=== PATIENT | male | born 1965 | race Caucasian/White ===

== ENCOUNTER 2021-02-11 03:35 | Emergency (ER) | payer BC, SELFPAY ==
--- NOTE | ~2021-02-11 | XR_ITS ---
XR chest 2V DATE: 02/11/2021 04:05 INDICATION: Left-sided chest pain and shortness of breath for one day TECHNIQUE: PA and lateral views COMPARISON: None FINDINGS: Normal heart size. No hilar or mediastinal enlargement. No pulmonary infiltrate or consolid ation, pleural effusion or pulmonary vascular congestion or pneumothorax. IMPRESSION: Negative Reviewed, dictated and finalized at location A. IMPRESSION: Negative
--- NOTE | 2021-02-11 03:37 | ECG_ITS ---
Measurements Intervals [place] Rate: 65 P: 56 UT: 190 QRS: 17 QRSD: 88 T: 51 QT: 396 QTc: 414 Interpretive Statements SINUS RHYTHM NORMAL ECG Electronically Signed On 02-11-2021 11:43:51 CDT by Michael Viera D.O.
[2021-02-11 03:41] VITALS: BP 158/94; PULSE 86; RESP 18; TEMP 36.7; O2SAT 100
[2021-02-11 03:48] VITALS: PULSE 66
[2021-02-11 04:21] LABS: Prothrombin Time 13.7 Seconds (11.1-14.7)
[2021-02-11 04:22] LABS: Anion Gap 10 mmol/L (8-16); Blood Urea Nitrogen 13 mg/dL (9-20); Calcium 9.2 mg/dL (8.4-10.2); Carbon Dioxide 29 mmol/L (22-30); Chloride 103 mmol/L (98-107); Estimated CRCL calculation 92 ml/min; Estimated Glomerular Filt Rate > 60; Glucose 90 mg/dL (75-110); Partial Thromboplastin Time 30.3 SECONDS (22.3-36.8); Potassium 4.2 mmol/L (3.4-5.0); Sodium 142 mmol/L (137-145)
[2021-02-11] MEDS: ASPIRIN 81 MG CHEWABLE TABLET 324 MG PO (04:31)
[2021-02-11 04:34] LABS: Troponin I < 0.012 ng/mL (0.000-0.034)
--- NOTE | 2021-02-11 05:02 | ED.CHESTPAIN ---
HPI - Chest Pain General Chief Complaint: Chest Pain <Ros Larry MD - Last Filed: 02/12/21 06:03> Stated Complaint: Chest pain <Ros Larry MD - Last Filed: 02/12/21 06:03> Time Seen by Provider: 02/11/21 04:00 <Ros Larry MD - Last Filed: 02/12/21 06:03> Source: patient <Ros Larry MD - Last Filed: 02/12/21 06:03> Mode of arrival: ambulatory <Ros Larry MD - Last Filed: 02/12/21 06:03> Limitations: no limitations <Ros Larry MD - Last Filed: 02/12/21 06:03> History of Present Illness HPI narrative: This is a 55 year old male who presents for evaluation of left chest pain. He states he first developed left chest pain last night. He described this pain has left chest tightness with left arm tightness. His pain only lasted minutes so he did not think much of his pain. He woke up at 3 am this morning with left chest pain that he describes as sharp left chest pain. He reports his pain has subsided and he only feels much sharp pain. He denies pain radiating to his back but he reports sharp left arm pain. He denies diaphoresis, nausea, vomiting or dizziness. HE does reports mild sob. He denies previous heart disease but reports his father of heart disease at the age of 70. <Ros Larry MD - Last Filed: 02/12/21 06:03> Related Data Home Medications: Home Medications Medication Instructions Recorded Confirmed timolol maleate drp 02/11/21 02/19/21 melatonin 10 mg tablet 10 mg PO QHS 02/19/21 02/19/21 <Ros Larry MD - Last Filed: 02/12/21 06:03> Allergies/Adverse Reactions: Allergies Allergy/AdvReac Type Severity Reaction Status Date / Time Penicillins Allergy Unknown Verified 02/11/21 03:36 <Ros Larry MD - Last Filed: 02/12/21 06:03> Review of Systems Review of Systems: All systems reviewed & are unremarkable except as noted in HPI and below <Ros Larry MD - Last Filed: 02/12/21 06:03> Constitutional: Constitutional: Denies chills and Denies fever(s) <Ros Larry MD - Last Filed: 02/12/21 06:03> Cardiovascular: Cardiovascular: Reports chest pain and Reports radiating jaw, neck or arm pain <Ros Larry MD - Last Filed: 02/12/21 06:03> Respiratory: Respiratory: Denies cough and Reports dyspnea <Ros Larry MD - Last Filed: 02/12/21 06:03> Gastrointestinal: Gastrointestinal: Denies abdominal pain, Denies nausea and Denies vomiting <Ros Larry MD - Last Filed: 02/12/21 06:03> Musculoskeletal: Musculoskeletal: Denies back pain <Ros Larry MD - Last Filed: 02/12/21 06:03> Neurologic: Denies focal weakness <Ros Larry MD - Last Filed: 02/12/21 06:03> [facility] Past Medical History Medical History: Medical History (Updated 02/19/21 @ 16:08 by Peter Granado MD) BMI 28.0-28.9,adult Cataract Chest pain Colon cancer screening Encounter for prostate cancer screening Encounter for wellness examination in adult Gastro-esophageal reflux disease without esophagitis Retinal detachment Rupture Achilles tendon Seasonal allergic rhinitis <Ros Larry MD - Last Filed: 02/12/21 06:03> Surgical History Surgical History: Surgical History (Updated 02/19/21 @ 14:50 by Deisy Willis MA) History of tonsillectomy and adenoidectomy (~1973) <Ros Larry MD - Last Filed: 02/12/21 06:03> Family History Family History: Family History (Updated 02/19/21 @ 14:51 by Deisy Willis MA) Father Heart disease Mother Breast cancer Sibling Hypertension Grandparent Heart disease <Ros Larry MD - Last Filed: 02/12/21 06:03> Social History Social History: Social History (Updated 02/19/21 @ 15:01 by Deisy Willis MA) Smoking status: Never smoker Alcohol intake: former Substance use: never Substance use type: does not use <Ros Larry MD - Last Filed: 02/12/21 06:03> Exam
[2021-02-11 06:57] VITALS: BP 131/90; PULSE 67; RESP 20; O2SAT 100
[2021-02-11 06:59] LABS: Basophils Absolute Auto 0.1 K/mm3 (0.0-0.1); Basophils Percent Auto 1.2 % (0.2-1.2); Eosinophils Absolute Auto 0.3 K/mm3 (0-0.3); Eosinophils Percent Auto 4.4 % (0-4.4); Hemoglobin 14.6 g/dL (14.0-18.0); Immature Granulocyte Absolute 0.02 K/mm3 (0.00-0.031); Immature Granulocyte Percent A 0.3 % (0-0.5); Lymphocytes Percent Auto 23.4 % (18.3-44.2); Mean Corpuscular HGB Conc 33.2 g/dl (32-36); Mean Corpuscular Hemoglobin 30.8 pg (26-34); Mean Corpuscular Volume 92.8 fl (80-100); Mean Platelet Volume 9.7 fl (7.4-10.4); Monocytes Absolute Auto 0.6 K/mm3 (0.1-0.6); Monocytes Percent Auto 9.5 % (2.6-8.5); Neutrophils Absolute Auto 3.9 K/mm3 (1.3-6.7); Neutrophils Percent Auto 61.2 % (45.5-73.1); Platelet Count Result 187 k/mm3 (150-375); Red Blood Count 4.74 M/mm3 (4.6-6.20); Red Cell Distribution Width 12.8 % (11.5-14.5); White Blood Count 6.4 K/mm3 (4.5-10.0)
[2021-02-11 07:12] LABS: D Dimer 0.27 ug/mL (<0.48)
[2021-02-11 07:59] LABS: Troponin I < 0.012 ng/mL (0.000-0.034)
[2021-02-11 08:36] VITALS: BP 126/84; PULSE 63; RESP 17; O2SAT 100
== END 2021-02-11 08:42 | disposition home or self-care (01) ==
PROVIDERS: Emergency Provider General Practice; PCP Family Medicine
DX: R07.9 Chest pain, unspecified (principal); H26.9 Unspecified cataract
CPT/HCPCS: 36415; 71046; 80048; 84484; 85025; 85380; 85610; 85730; 93005; 99284; A9270

== ENCOUNTER 2021-03-05 10:06 | Outpatient (CLI) | payer BC, SELFPAY ==
--- NOTE | 2021-03-05 10:12 | EST_ITS ---
Patient Info Name: Andrea Farley Age: 55 years : 1965 Gender: Male Ht: 77 in Wt: 235 lbs BSA: 2.42 m2 Exam Date: 03/05/2021 10:40 AM Exam Location: [facility] Stress Patient Status: Outpatient Admit Date: 03/05/2021 Staff Ordering Physician: Peter Granado MD Attending Provider: Peter Granado MD Exercise Technologist: Refugio Oliver RDCS, RT Exercise Physician: Michael Viera DO Exam Type: CA stress test treadmill Study Info A treadmill exercise stress test was performed. Summary 1. 1. Negative Joey exercise stress test for ischemic ST changes by ECG criteria. 2. 2. Good functional capacity, achieving 10 METs of workload. 3. 3. Appropriate HR response to exercise. 4. 4. Appropriate HR recovery at 1 minute post exercise. 5. 5. No imaging with stress testing. 6. 6. Patient informed of the above results. Protocol: Joey Stress ECG Details Stage: REST Duration (min): 1 min : 10 sec Speed (mph): 0.0 Grade (%): 0 HR (bpm): 61 SBP (mmHg): 121 DBP (mmHg): 80 METS: --- Stage: REST Duration (min): 4 min : 36 sec Speed (mph): 0.0 Grade (%): 0 HR (bpm): 75 SBP (mmHg): 121 DBP (mmHg): 80 METS: --- Stage: STAGE 1 Duration (min): 1 min : 0 sec Speed (mph): 1.7 Grade (%): 10 HR (bpm): 97 SBP (mmHg): 121 DBP (mmHg): 80 METS: --- Stage: STAGE 1 Duration (min): 2 min : 0 sec Speed (mph): 1.7 Grade (%): 10 HR (bpm): 103 SBP (mmHg): 121 DBP (mmHg): 80 METS: --- Stage: STAGE 1 Duration (min): 3 min : 0 sec Speed (mph): 1.7 Grade (%): 10 HR (bpm): 105 SBP (mmHg): 159 DBP (mmHg): 89 METS: --- Stage: STAGE 2 Duration (min): 1 min : 0 sec Speed (mph): 2.5 Grade (%): 12 HR (bpm): 118 SBP (mmHg): 159 DBP (mmHg): 89 METS: --- Stage: STAGE 2 Duration (min): 2 min : 0 sec Speed (mph): 2.5 Grade (%): 12 HR (bpm): 124 SBP (mmHg): 158 DBP (mmHg): 83 METS: --- Stage: STAGE 2 Duration (min): 3 min : 0 sec Speed (mph): 2.5 Grade (%): 12 HR (bpm): 128 SBP (mmHg): 158 DBP (mmHg): 83 METS: --- Stage: STAGE 3 Duration (min): 1 min : 0 sec Speed (mph): 3.4 Grade (%): 14 HR (bpm): 139 SBP (mmHg): 168 DBP (mmHg): 91 METS: --- Stage: STAGE 3 Duration (min): 2 min : 0 sec Speed (mph): 3.4 Grade (%): 14 HR (bpm): 136 SBP (mmHg): 168 DBP (mmHg): 91 METS: --- Stage: STAGE 3 Duration (min): 2 min : 59 sec Speed (mph): 3.4 Grade (%): 14 HR (bpm): 140 SBP (mmHg): 168 DBP (mmHg): 91 METS: --- Stage: RECOVERY Duration (min): 1 min : 0 sec Speed (mph): 0.0 Grade (%): 0 HR (bpm): 127 SBP (mmHg): 168 DBP (mmHg): 91 METS: --- Stage: RECOVERY Duration (min): 2 min : 0 sec Speed (mph): 0.0 Grade (%): 0 HR (bpm): 1
== END 2021-03-05 10:07 | disposition home or self-care (01) ==
PROVIDERS: PCP Family Medicine; Visit Provider Family Medicine
DX: R07.9 Chest pain, unspecified (principal)
CPT/HCPCS: 93017

== ENCOUNTER 2023-09-14 23:10 | Observation (INO) | payer BC, SELFPAY ==
[2023-09-14] VITALS (9 sets, daily range): BP systolic 154–175; BP diastolic 73–93; PULSE 78–101; RESP 11–28; TEMP 36.4; O2SAT 95–97
--- NOTE | ~2023-09-14 | CT_ITS ---
EXAMINATION: CT diagnostic chest wo con DATE: 09/15/2023 14:31 INDICATION: Worsening shortness of breath and wheezing TECHNIQUE: Computed tomography (CT) of the chest was performed without intravenous contrast. The dose -length product was 320.93 mGy-cm. Automated exposure control and iterative reconstruction technique were employed. COMPARISON: None FINDINGS: No significant pleural or pericardial effusion. Heart size normal. No thoracic lymphadenopa thy. Small hiatal hernia. Small low-density lesions in the liver, most likely benign cysts. The upper abdomen otherwise unremarkable. No focal airspace consolidation. No pneumothorax. No endobronchial l esions. No pulmonary nodules. No acute osseous abnormality. IMPRESSION: 1. No acute cardiopulmonary disease. Reviewed, dictated and finalized at location B. OR IT ENGINEER
--- NOTE | ~2023-09-14 | XR_ITS ---
EXAMINATION: XR chest 2V DATE: 09/15/2023 00:06 INDICATION: Chest pain TECHNIQUE: PA and lateral views of the chest are obtained. COMPARISON: 02/11/2021 FINDINGS: The lungs are free of acute opacities. No pleural effusion or pneumothorax. The cardiomedia stinal silhouette is normal. There is mild thoracic spondylosis. IMPRESSION: 1. No acute cardiopulmonary abnormality. Reviewed, dictated and finalized at location F. ANICAL MAINTENANCE INSTRUCTOR
--- NOTE | 2023-09-14 23:11 | ECG_ITS ---
Measurements Intervals [place] Rate: 99 P: 80 WA: 165 QRS: -3 QRSD: 92 T: 66 QT: 358 QTc: 459 Interpretive Statements SINUS RHYTHM LOW QRS VOLTAGE IN LIMB LEADS BORDERLINE ST-T WAVE ABNORMALITY- ANTEROLAT/INF LEADS BASELINE ARTIFACT- II, III, AVR, AVL, AVF, V5-V6 BORDERLINE ECG COMPARED TO ECG 02/11/2021 03:44:28 NO SIGNIFICANT CHANGES Electronically Signed On 09-15-2023 6:55:21 HYDROSTATIC TUBING TESTER by Michael Viera D.O.
--- NOTE | 2023-09-14 23:23 | ED.SOB ---
HPI - SOB/Dyspnea General Chief Complaint: Shortness of Breath/Dyspnea <Reema Fiore PA-C - Last Filed: 09/15/23 02:03> Stated Complaint: sob <Reema Fiore PA-C - Last Filed: 09/15/23 02:03> Time Seen by Provider: 09/14/23 23:19 <Reema Fiore PA-C - Last Filed: 09/15/23 02:03> Source: patient <LAURIE Quesada Last Filed: 09/15/23 02:03> Mode of arrival: ambulatory <LAURIE Quesada Last Filed: 09/15/23 02:03> Limitations: no limitations <LAURIE Quesada Last Filed: 09/15/23 02:03> History of Present Illness HPI Narrative: This is a 57 year old male that presents to the ER for shortness of breath. Reports ongoing over the last several months. Worsening over the last couple of weeks. Reports they recently tore up their carpets and he has history of allergies to cats. They do have a cat. He has no history of asthma or COPD. He has been wheezing. Has been using an inhaler given to him by a friend. Reports a non-productive cough. Denies fever or lower extremity edema. <Reema Fiore PA-C - Last Filed: 09/15/23 02:03> Related Data Home Medications: Home Medications Medication Instructions Recorded Confirmed timolol maleate 0.5 % eye drops 1 drp LEFT EYE BID 02/11/21 09/15/23 cyanocobalamin (vitamin B-12) 1,000 mcg PO DAILY 03/13/21 09/15/23 1,000 mcg tablet cholecalciferol (vitamin D3) 25 25 mcg PO DAILY 09/15/23 09/15/23 mcg (1,000 unit) tablet (Vitamin D3) fluticasone propionate 50 1 spray intranasal BID PRN 09/15/23 09/15/23 mcg/actuation nasal allergies spray,suspension (Flonase Allergy Relief) latanoprost 0.005 % eye drops 1 drp EACH EYE HS 09/15/23 09/15/23 zinc 25 mg tablet 25 mg PO DAILY 09/15/23 09/15/23 <Reema Fiore PA-C - Last Filed: 09/15/23 02:03> Allergies/Adverse Reactions: Allergies Allergy/AdvReac Type Severity Reaction Status Date / Time Penicillins Allergy Unknown Verified 02/11/21 03:36 <Reema Fiore PA-C - Last Filed: 09/15/23 02:03> Review of Systems Review of Systems: CONSTITUTIONAL: Denies fever CARDIOVASCULAR: Reports chest pain. Denies edema. RESPIRATORY: Reports cough and dyspnea. <Reema Fiore PA-C - Last Filed: 09/15/23 02:03> All systems reviewed & are unremarkable except as noted in HPI and below <Reema Fiore PA-C - Last Filed: 09/15/23 02:03> [facility] Past Medical History Medical History: Medical History (Updated 09/15/23 @ 01:28 by Reema Fiore PA-C) BMI 28.0-28.9,adult Cataract Chest pain he exercise stress test on 03/05/2021 was negative Colon cancer screening Encounter for prostate cancer screening Encounter for wellness examination in adult Gastro-esophageal reflux disease without esophagitis Retinal detachment Rupture Achilles tendon Seasonal allergic rhinitis Vitamin B12 deficiency anemia (03/11/21) level low at 366 <Reema Fiore PA-C - Last Filed: 09/15/23 02:03> Surgical History Surgical History: Surgical History (Updated 02/19/21 @ 14:50 by Deisy Willis MA) History of tonsillectomy and adenoidectomy (~1973) <Reema Fiore PA-C - Last Filed: 09/15/23 02:03> Family History Family History: Family History Father Heart disease Mother Breast cancer Sibling Hypertension Grandparent Heart disease <Reema Fiore PA-C - Last Filed: 09/15/23 02:03> Social History Social History: Social History (Updated 02/19/21 @ 15:01 by Deisy Willis MA) Smoking status: Never smoker Alcohol intake: former Substance use: never Substance use type: does not use Lack of Transportation: No Lack of Food: Never True Current Housing: I Have Housing Concerned About Future Housing: No Difficulty Paying Gas/Electric Bills: No Difficulty Paying for Meds: No Currently Unemployed: No Education: Master's Degree or Higher [place]
[2023-09-14] MEDS: ASPIRIN 81 MG CHEWABLE TABLET 324 MG PO (23:31)
[2023-09-14] MEDS: IPRATROPIUM BR 0.02% INH SOLN 0.5 MG/2.5 ML VIAL INHALATION (23:45)
[2023-09-14] MEDS: ALBUTEROL SULFATE NEB 2.5 MG/3 ML INH INHALATION (23:45)
[2023-09-14 23:47] LABS: Basophils Absolute Auto 0.1 K/mm3 (0.0-0.1); Basophils Percent Auto 1.6 % (0.2-1.2); Eosinophils Absolute Auto 0.6 K/mm3 (0-0.3); Eosinophils Percent Auto 6.4 % (0-4.4); Hematocrit 49.5 % (42.0-52.0); Immature Granulocyte Absolute 0.02 K/mm3 (0.00-0.031); Immature Granulocyte Percent A 0.2 % (0-0.5); Lymphocytes Absolute Auto 2.31 K/mm3 (0.9-3.2); Lymphocytes Percent Auto 26.9 % (18.3-44.2); Mean Corpuscular HGB Conc 32.3 g/dl (32-36); Mean Corpuscular Hemoglobin 29.5 pg (26-34); Mean Corpuscular Volume 91.2 fl (80-100); Monocytes Percent Auto 11.4 % (2.6-8.5); Neutrophils Absolute Auto 4.6 K/mm3 (1.3-6.7); Neutrophils Percent Auto 53.5 % (45.5-73.1); Platelet Count Result 280 k/mm3 (150-375); Red Blood Count 5.43 M/mm3 (4.6-6.20); Red Cell Distribution Width 13.2 % (11.5-14.5); White Blood Count 8.6 K/mm3 (4.5-10.0)
[2023-09-14] MEDS: methylPREDNISolone SOD SUCC 125 MG VIAL IV PUSH (23:53)
[2023-09-14 23:57] LABS: Alanine Aminotransferase 34 U/L (6-50); Alkaline Phosphatase 79 U/L (38-126); Anion Gap 10 mmol/L (8-16); Aspartate Amino Transferase 29 U/L (17-59); Blood Urea Nitrogen 10 mg/dL (9-20); Calcium 9.7 mg/dL (8.4-10.2); Carbon Dioxide 27 mmol/L (22-30); Chloride 105 mmol/L (98-107); Estimated CRCL calculation 99 ml/min; Estimated Glomerular Filt Rate > 60; Glucose 91 mg/dL (65-110); Lipase 87 U/L (23-300); Potassium 3.9 mmol/L (3.4-5.0); Sodium 142 mmol/L (137-145)
[2023-09-15] VITALS (28 sets, daily range): BP systolic 113–161; BP diastolic 78–98; PULSE 79–111; RESP 10–24; TEMP 36.8–37.4; O2SAT 91–97; BMI 26.0
[2023-09-15 00:01] LABS: INR 1.1; Prothrombin Time 14.3 Seconds (11.1-14.7)
[2023-09-15 00:02] LABS: Partial Thromboplastin Time 33.9 SECONDS (22.3-36.8)
[2023-09-15 00:08] LABS: D Dimer 0.33 ug/mL (<0.48)
[2023-09-15 00:09] LABS: Troponin I < 0.012 ng/mL (0.000-0.034)
[2023-09-15] MEDS: ALBUTEROL SULFATE NEB 2.5 MG/3 ML INH 15 MG INHALATION (00:50)
[2023-09-15] MEDS: IPRATROPIUM BR 0.02% INH SOLN 0.5 MG/2.5 ML VIAL 1.5 MG INHALATION (00:51)
[2023-09-15 02:35] LABS: Troponin I < 0.012 ng/mL (0.000-0.034)
[2023-09-15 03:19] LABS: Influenza A QL RT-PCR Negative (Negative); Influenza B QL RT-PCR Negative (Negative); RSV RNA, RT-PCR Negative (Negative); SARS-CoV-2 RNA PCR Negative (Negative)
--- NOTE | 2023-09-15 03:21 | ADMGEN ---
This patient, Andrea Farley, was admitted to Medical Room 346-01. Patient/family oriented to hospital policies and general routines including ID bracelet, bed and alarms, visiting hours, pain management, procedures, bathroom and other care routines, personal items, smoking policy, room service/diet, and visiting hours. Information on how to activate the Rapid Response Team has been discussed. Patient/Family are encouraged to report perceived risks to care and to ask questions if they do not understand what they are told or what they should do.
[2023-09-15] MEDS: methylPREDNISolone SOD SUCC 125 MG VIAL 60 MG IV PUSH ×4 (05:15→23:00)
[2023-09-15 06:01] LABS: Troponin I < 0.012 ng/mL (0.000-0.034)
[2023-09-15] MEDS: ALBUTEROL SULFATE NEB 2.5 MG/3 ML INH INHALATION ×3 (07:40→20:19)
[2023-09-15] MEDS: IPRATROPIUM BR 0.02% INH SOLN 0.5 MG/2.5 ML VIAL INHALATION ×3 (07:40→20:19)
--- NOTE | 2023-09-15 13:20 | PM.IMHP ---
H&P: HPI History of Present Illness Date/Time: 09/15/23 1000 Chief Complaint: Shortness of breath Wheezing Cough Review of Systems Review of Systems: All systems reviewed & are unremarkable except as noted in HPI and below Cardiovascular: Cardiovascular: Reports no additional cardiovascular complaints Respiratory: Respiratory: Reports cough and Reports dyspnea Comments: Shortness of breath home exercise x1 on worsening past 2 days Gastrointestinal: Gastrointestinal: Reports no additional gastrointestinal complaints [facility] Past Medical History Medical History BMI 28.0-28.9,adult Cataract Chest pain he exercise stress test on 03/05/2021 was negative Colon cancer screening Encounter for prostate cancer screening Encounter for wellness examination in adult Gastro-esophageal reflux disease without esophagitis Retinal detachment Rupture Achilles tendon Seasonal allergic rhinitis Vitamin B12 deficiency anemia (03/11/21) level low at 366 Surgical History Surgical History History of tonsillectomy and adenoidectomy (~1973) Family History Family History Father Heart disease Mother Breast cancer Sibling Hypertension Grandparent Heart disease Social History Social History Smoking status: Never smoker Alcohol intake: former Substance use: never Substance use type: does not use Lack of Transportation: No Lack of Food: Never True Current Housing: I Have Housing Concerned About Future Housing: No Difficulty Paying Gas/Electric Bills: No Difficulty Paying for Meds: No Currently Unemployed: No Education: Master's Degree or Higher Difficulty w/ Childcare or Family Care: No Spiritual care concerns: No Meds Home Medications and Allergies Home Medications Medication Instructions Recorded Confirmed Type timolol maleate 0.5 % eye drops 1 drp LEFT EYE BID 02/11/21 09/15/23 History cyanocobalamin (vitamin B-12) 1,000 mcg PO DAILY 03/13/21 09/15/23 History 1,000 mcg tablet cholecalciferol (vitamin D3) 25 25 mcg PO DAILY 09/15/23 09/15/23 History mcg (1,000 unit) tablet (Vitamin D3) fluticasone propionate 50 1 spray intranasal BID PRN 09/15/23 09/15/23 History mcg/actuation nasal allergies spray,suspension (Flonase Allergy Relief) latanoprost 0.005 % eye drops 1 drp EACH EYE HS 09/15/23 09/15/23 History zinc 25 mg tablet 25 mg PO DAILY 09/15/23 09/15/23 History Allergies Allergy/AdvReac Type Severity Reaction Status Date / Time Penicillins Allergy Unknown Verified 02/11/21 03:36 Vital Signs Vital Signs - 24 hr 09/14/23 23:13 09/14/23 23:29 09/14/23 23:47 Temperature 97.5 F L Pulse Rate 101 H 90 Respiratory Rate 28 H 18 Blood Pressure 175/91 H Pulse Oximetry 95 97 Oxygen Delivery Room Air Room Air 09/14/23 23:58 09/14/23 23:45 09/15/23 01:00 Temperature Pulse Rate 92 78 93 Respiratory Rate 18 16 Blood Pressure Pulse Oximetry Oxygen Delivery 09/14/23 23:27 09/14/23 23:30 09/14/23 23:31 Temperature Pulse Rate 91 94 98 Respiratory Rate 17 17 15 Blood Pressure 163/73 H Pulse Oximetry Oxygen Delivery 09/14/23 23:45 09/14/23 23:46 09/15/23 00:09 Temperature Pulse Rate 90 90 93 Respiratory Rate 14 11 L 14 Blood Pressure 154/93 H Pulse Oximetry Oxygen Delivery 09/15/23 00:18 09/15/23 00:34 09/15/23 00:45 Temperature Pulse Rate 94 87 89 Respiratory Rate 15 18 11 L Blood Pressure 129/78 Pulse Oximetry Oxygen Delivery 09/15/23 00:46 09/15/23 00:47 09/15/23 01:00 Temperature Pulse Rate 89 88 79 Respiratory Rate 15 12 10 L Blood Pressure 135/91 H Pulse Oximetry Oxygen Delivery 09/15/23 01:17 09/15/23 01:
[2023-09-15 14:49] LABS: Alveolar/Arterial O2 Gradient 39.3 mmHg; Base Excess ABG 1.1 mEq/l (+/-2.0); Fractional Inspired Oxygen 21 %; HCO3 ABG 24.8 mEq/l (22.0-26.0); Oxygen Content ABG 21.4 %vol (16.0-22.0); Oxygen Saturation ABG 94.1 % (95.0-100.0); Oxyhemoglobin 93.1 % THb (90.0-100.0); PCO2 ABG 36.6 mmHg (35.0-45.0); PO2 ABG 66.6 mmHg (80.0-100.0); PO2 FiO2 Ratio Arterial Blood 3.17 %; Site Drawn RIGHT BRACHIAL; Total Hemoglobin 16.4 g/dL (12.0-18.0); pH ABG 7.448 (7.350-7.450)
[2023-09-15 14:50] LABS: Device ROOM AIR
--- NOTE | 2023-09-15 14:51 | PCRCNOTE ---
ABG'S delayed due to patient gone for testing in cat scan
[2023-09-16] MEDS: IPRATROPIUM BR 0.02% INH SOLN 0.5 MG/2.5 ML VIAL INHALATION ×2 (01:28→08:21)
[2023-09-16] MEDS: ALBUTEROL SULFATE NEB 2.5 MG/3 ML INH INHALATION ×2 (01:28→08:21)
[2023-09-16 01:30] VITALS: PULSE 89; RESP 17
[2023-09-16 01:37] VITALS: PULSE 101; RESP 19
[2023-09-16] MEDS: methylPREDNISolone SOD SUCC 125 MG VIAL 60 MG IV PUSH ×2 (05:28→11:50)
[2023-09-16 05:31] VITALS: BP 122/76; PULSE 82; RESP 12; TEMP 36.5; O2SAT 92
[2023-09-16 08:21] VITALS: PULSE 78; RESP 18; O2SAT 93
[2023-09-16 08:34] VITALS: PULSE 85; RESP 18
--- NOTE | 2023-09-16 11:53 | PM.DS ---
DS: Admitting Diagnosis Discharge Date 09/16/23 Admitting Diagnosis Reactive airway disease DS: Discharge Diagnosis Discharge Diagnosis (1) Reactive airway disease: Code(s): J45.909 - Unspecified asthma, uncomplicated Status: Acute DS: Summary Hospital Course Hospital Course: patient presented to the ER on account of SOB and wheezing. Noted he has been doing some home rehab prior to onset of symptoms. Denies any history of Asthma. Was started on Steroids and Duoneb and this morning, his symptoms have markedly improved Dishcarged on Advair and PRN Combivent. Referred to pulm for further workup in 1-2 weeks. f/u with PCP in 3-5 days Time Spent with Patient Time attestation: Total time spent providing and/or coordinating discharge services: DS: Data Data Completed and Pending Labs on day of discharge: Labs from last 24 hours 09/15/23 14:40 Puncture Site Right brachial ABG pH 7.448 ABG pCO2 36.6 ABG pO2 66.6 L ABG PO2/FiO2 Ratio 3.17 ABG HCO3 24.8 ABG O2 Saturation 94.1 L ABG O2 Content 21.4 ABG Base Excess 1.1 A-a Gradient 39.3 Oxyhemoglobin 93.1 Total Hemoglobin 16.4 O2 Delivery Device Room air O2 Liters/Min Not Reportable FiO2 21 Discharge Plan Discharge Attending physician on discharge: Elsie Beach Discharging Clinician: Elsie Beach Anticipated Discharge Date/Time: 09/16/23 11:14 Patient Disposition: Home, Self-Care Activity: as tolerated Diet: as tolerated Patient Instructions: Antibiotic Form Stand Alone Forms: General Discharge Information Follow-up/Referrals: Peter Granado MD [Primary Care Provider] - (f/u with PCP in 3-5 days ) Albert Rasmussen MD [Physician] - (f/u in 1-2 weeks ) Discharge Medications: New Combivent Respimat 20-100 mcg/actuation mist 1 puff inhalation QID PRN (Reason: shortness of breath or wheezing) Qty: 4 2RF Rx Instructions: space evenly during waking hours fluticasone propion-salmeterol [Advair Diskus] 100-50 mcg/dose blister with device 1 inh inhalation Q12H Qty: 60 2RF Continued latanoprost 0.005 % drops 1 drp EACH EYE HS fluticasone propionate [Flonase Allergy Relief] 50 mcg/actuation spray,suspension 1 spray intranasal BID PRN (Reason: allergies) Rx Instructions: administer into each nostril zinc 25 mg Tablet 25 mg PO DAILY cholecalciferol (vitamin D3) [Vitamin D3] 25 mcg (1,000 unit) Tablet 25 mcg PO DAILY timolol maleate 0.5 % drops 1 drp LEFT EYE BID cyanocobalamin (vitamin B-12) 1,000 mcg tablet 1,000 mcg PO DAILY Date of admission: 09/15/23 01:59 Primary Care Provider: Peter Granado Admitting Provider: Gay Dennis V. Attending physician on admission: Gay Dennis V. Condition: Stable
== END 2023-09-16 12:21 | disposition home or self-care (01) ==
LOC: ANHED 09-15 02:03 → ANH3MED 09-15 02:56
PROVIDERS: Nurse Practitioner Family; Admitting Provider Internal Medicine; Emergency Provider Physician Assistant; PCP Family Medicine; Visit Provider Internal Medicine
DX: J45.909 Unspecified asthma, uncomplicated (principal); K21.9 Gastro-esophageal reflux disease without esophagitis; D51.9 Vitamin B12 deficiency anemia, unspecified; Z79.899 Other long term (current) drug therapy
CPT/HCPCS: 36415; 36600; 71046; 71250; 80053; 82805; 83690; 84484; 85025; 85380; 85610; 85730; 87637; 93005; 94640; 96374; 96376; 99285; A9270; G0378; J2930

== ENCOUNTER 2023-10-14 12:25 | Outpatient (CLI) | payer BC, SELFPAY | END 2023-10-14 12:26 | disposition home or self-care (01) | LOC: ANHPFT 12:26 | PROVIDERS: PCP Family Medicine; Visit Provider Nurse Practitioner Family | DX: J45.909 Unspecified asthma, uncomplicated (principal) | CPT/HCPCS: 94060; 94726; 94729 ==

== ENCOUNTER 2024-09-12 04:01 | Emergency (ER) | payer BC, SELFPAY ==
--- NOTE | 2024-09-12 | ECG_ITS ---
Test Date: 2024-09-12 04:11:45 Measurements Intervals [place] Rate: 55 P: 35 [place]: 204 QRS: -1 QRSD: 94 T: 42 QT: 428 QTc: 412 Interpretive Statements SINUS BRADYCARDIA CONSIDER INFERIOR INFARCT, AGE INDETERMINATE ABNORMAL ECG No previous ECG available for comparison Electronically Signed On 09-12-2024 06:44:56 SUBMERSIBLE PILOT by Michael Viera D.O.
--- NOTE | ~2024-09-12 | XR_ITS ---
Portable chest x-ray Comparison: None Clinical History: Chest pain Findings: Lungs are clear, without focal consolidation or pleural effusion. Cardiomediastinal silho uette is unremarkable. Bones and soft tissues are unremarkable. Impression: Clear lungs. Reviewed, dictated and finalized at location M. [employer] PROPERTY ACCOUNTANT Impression: Clear lungs.
[2024-09-12 04:00] VITALS: PULSE 61
[2024-09-12 04:03] VITALS: BP 160/108; PULSE 67; RESP 15; TEMP 36.7; O2SAT 97
[2024-09-12 04:28] LABS: Basophils Absolute Auto 0.1 K/mm3 (0.0-0.1); Eosinophils Absolute Auto 0.3 K/mm3 (0-0.3); Eosinophils Percent Auto 2.6 % (0-4.4); Hematocrit 44.3 % (42.0-52.0); Hemoglobin 14.9 g/dL (14.0-18.0); Immature Granulocyte Absolute 0.03 K/mm3 (0.00-0.031); Immature Granulocyte Percent A 0.3 % (0-0.5); Lymphocytes Absolute Auto 2.05 K/mm3 (0.9-3.2); Lymphocytes Percent Auto 19.2 % (18.3-44.2); Mean Corpuscular HGB Conc 33.6 g/dl (32-36); Mean Corpuscular Hemoglobin 29.8 pg (26-34); Mean Corpuscular Volume 88.6 fl (80-100); Mean Platelet Volume 10.1 fl (7.4-10.4); Monocytes Percent Auto 8.9 % (2.6-8.5); Neutrophils Absolute Auto 7.3 K/mm3 (1.3-6.7); Platelet Count Result 251 k/mm3 (150-375); Red Cell Distribution Width 12.9 % (11.5-14.5); White Blood Count 10.7 K/mm3 (4.5-10.0)
[2024-09-12 04:33] VITALS: O2SAT 97
[2024-09-12 04:41] LABS: Alanine Aminotransferase 29 U/L (6-50); Albumin Level 4.8 g/dL (3.5-5.1); Alkaline Phosphatase 88 U/L (38-126); Anion Gap 12 mmol/L (4-12); Aspartate Amino Transferase 23 U/L (17-59); Bilirubin,Total 1.1 mg/dL (0.2-1.3); Blood Urea Nitrogen 13 mg/dL (9-20); Carbon Dioxide 23 mmol/L (22-30); Chloride 103 mmol/L (98-107); Estimated CRCL calculation 89 ml/min; Estimated Glomerular Filt Rate > 60; Glucose 106 mg/dL (65-110); Lipase 67 U/L (23-300); Potassium 3.8 mmol/L (3.4-5.0); Sodium 138 mmol/L (137-145)
[2024-09-12 04:48] LABS: Partial Thromboplastin Time 31.5 Seconds (22.3-36.8)
[2024-09-12 04:53] LABS: Troponin I < 0.012 ng/mL (0.000-0.034)
[2024-09-12] MEDS: FAMOTIDINE 20 MG/2 ML VIAL IV PUSH (05:10)
[2024-09-12 06:18] VITALS: BP 152/98; PULSE 67; RESP 19; O2SAT 97
--- NOTE | 2024-09-12 06:22 | ED_ITS ---
HPI - Chest Pain General Chief Complaint: Chest Pain <Azalia Mills MD - Last Filed: 09/12/24 06:47> Stated Complaint: CP WITH LOW BACK PAIN <Azalia Mills MD - Last Filed: 09/12/24 06:47> Time Seen by Provider: 09/12/24 04:06 <Azalia Mills MD - Last Filed: 09/12/24 06:47> History of Present Illness HPI narrative: Patient is a 58-year-old male who presents to the emergency department this morning complaining of mid epigastric abdominal pain radiating up to his chest. Patient states that the pain started approximately 4 hours ago around midnight. Patient states that initially he felt as though it was related to indigestion or acid reflux because he does have a history of acid reflux but states that his acid reflux has significantly improved after he changed his diet. Denies any history of cardiovascular disease or any previous MIs. Pat ient was administered a full dose oral chewable aspirin by EMS prior to arrival. Denies any recent cough, shortness of breath, or any URI symptoms. Denies any fevers or chills. Denies any nausea vomiting or abdominal pain. No additional symptoms or concerns at this time. <Azalia Mills MD - Last Filed: 09/12/24 06:47> Related Data Home Medications: Home Medications Medication Instructions Recorded Confirmed timolol maleate 0.5 % eye drops 1 drp LEFT EYE BID 02/11/21 05/19/24 cyanocobalamin (vitamin B-12) 1,000 mcg PO DAILY 03/13/21 05/19/24 1,000 mcg tablet fluticasone propionate 50 1 spray intranasal BID PRN 09/15/23 05/19/24 mcg/actuation nasal allergies spray,suspension (Flonase Allergy Relief) latanoprost 0.005 % eye drops 1 drp EACH EYE HS 09/15/23 05/19/24 zinc 25 mg tablet 25 mg PO DAILY 09/15/23 05/19/24 cholecalciferol (vitamin D3) 25 1,000 unit PO DAILY 03/22/24 05/19/24 mcg (1,000 unit) tablet (Vitamin D3) <Azalia Mills MD - Last Filed: 09/12/24 06:47> Allergies/Adverse Reactions: Allergies Allergy/AdvReac Type Severity Reaction Status Date / Time Penicillins Allergy Unknown Verified 05/19/24 10:25 <Azalia Mills MD - Last Filed: 09/12/24 06:47> Review of Systems Review of Systems: All systems are reviewed and are negative unless stated otherwise in the HPI. <Azalia Mills MD - Last Filed: 09/12/24 06:47> PMFSH Past Medical History Medical History: Medical History BMI 28.0-28.9,adult Cataract Chest pain he exercise stress test on 03/05/2021 was negative Colon cancer screening normal colonoscopy at age 49. Encounter for prostate cancer screening PSA 0.45 on 02/28/2024. Encounter for wellness examination in adult Gastro-esophageal reflux disease without esophagitis Glaucoma Mixed hyperlipidemia (02/28/24) cholesterol 204, triglycerides 258, HDL 33, LDL 131 with ratio 6.2 on 02/28/2024. Overweight (BMI 25.0-29.9) Retinal detachment Rupture Achilles tendon Seasonal allergic rhinitis Vitamin B12 deficiency anemia (03/11/21) level low at 366. Level normal at 441 on 02/28/2024. <Azalia Mills MD - Last Filed: 09/12/24 06:47> Surgical History Surgical History: Surgical History History of tonsillectomy and adenoidectomy (~1973) <Azalia Mills MD - Last Filed: 09/12/24 06:47> Family History Family History: Family History Father Heart disease Mother Breast cancer Sibling Hypertension Grandparent Heart disease <Azalia Mills MD - Last Filed: 09/12/24 06:47> Social History Social History: Social History Smoking status: Never smoker Alcohol intake: former Substance use: never Substance use type: does not use Lack of Transportation: No Lack of Food: Never True Current Housing: I Have Housing Concerned About Future Housing: No Difficulty Paying Gas/Electric Bills: No Difficulty Paying for Meds: No Currently Unemployed: No Education: Master's Degree or Higher Difficulty w/ Childcare or Family Care: No Spiritual care concerns: No <Azalia Mills MD - Last Filed: 09/12/24 06:47> Exam Narrative: General: Alert, awake, afebrile, in no acute distress. HEENT: PERRL, no rhinorrhea, no post nasal drip, oropharynx clear. Neck: Trachea midline, no JVD, no lymphadenopathy. Cardiovascular: Regular rate and rhythm, no murmurs, rubs or gallops, no peripheral edema. Respiratory: Clear to auscultation bilaterally, no tachypnea, no wheezing, no rhonchi, no rubs, no respiratory distress. Abdomen: Soft, nontender, nondistended, no rebound, no guarding, no peritoneal signs. Musculoskeletal: No joint swelling or deformity, normal muscle tone. Skin: No rashes or petechia, no signs of infection. Psychiatric: Alert and oriented, normal behavior and judgment for situation. Neurological: Alert and oriented to person, place, and time. Follows all commands. No focal deficits, speech is clear and fluent. <Azalia Mills MD - Last Filed: 09/12/24 06:47> Course Reevaluation(s) Reevaluation #1: At time of sign-out by Dr. Mills repeat troponin was pending. Patient's repeat troponins within normal limits. Repeat EKG is unchanged from initial EKG. Patient was encouraged to have close follow-up with primary care physician for additional outpatient cardiac testing. <Humberto Waltno MD - Last Filed: 09/12/24 17:15> Vital Signs Vital signs: Vital Signs Pulse Rate 61 09/12/24 04:00 Temperature 98.1 F 09/12/24 04:03 Pulse Rate 72 09/12/24 09:05 Respiratory Rate 16 09/12/24 09:05 Blood Pressure 137/91 H 09/12/24 09:05 Pulse Oximetry 99 09/12/24 09:05 Oxygen Delivery Room Air 09/12/24 04:33 <Azalia Mills MD - Last Filed: 09/12/24 06:47> Vital Signs Pulse Rate 61 09/12/24 04:00 Temperature 98.1 F 09/12/24 04:03 Pulse Rate 72 09/12/24 09:05 Respiratory Rate 16 09/12/24 09:05 Blood Pressure 137/91 H 09/12/24 09:05 Pulse Oximetry 99 09/12/24 09:05 Oxygen Delivery Room Air 09/12/24 04:33 <Humberto Walton MD - Last Filed: 09/12/24 17:15> MDM - Chest Pain MDM Narrative Medical decision making narrative: The patient was evaluated by myself in the emergency department. History is obtained from patient who is an independent historian and physical exam was performed. External medical records were reviewed at this time. IV was established and pertinent tests were ordered. Patient was administered 20 mg IV Pepcid at this time. EKG was obtained which revealed sinus bradycardia at a rate of 55 beats per minute. No ST changes, T wave inversions or evidence of acute ischemia. EKG was independently interpreted by me and is currently pending official cardiology read. Laboratory results obtained revealing no acute process. Initial troponin negative. Imaging studies obtained included CXR which was independently interpreted by me revealing no acute process, which is pending final radiology interpretation. Differential diagnosis considerations include acid reflux/GERD, peptic ulcer, acute coronary syndrome. Patient was signed out to Dr. Walton pending 2nd troponin. <Azalia Mills MD - Last Filed: 09/12/24 06:47> Lab Data Result diagrams: 09/12/24 04:16 09/12/24 04:16 <Azalia Mills MD - Last Filed: 09/12/24 06:47> Labs: Lab Results 09/12/24 09/12/24 Range/Units 04:16 07:25 WBC 10.7 H (4.5-10.0) K/mm3 RBC 5.00 (4.6-6.20) M/mm3 Hgb 14.9 (14.0-18.0) g/dL Hct 44.3 (42.0-52.0) % MCV 88.6 (80-100) fl MCH 29.8 (26-34) pg MCHC 33.6 (32-36) g/dl RDW 12.9 (11.5-14.5) % Plt Count 251 (150-375) k/mm3 MPV 10.1 (7.4-10.4) fl Immature Gran % (Auto) 0.3 (0-0.5) % Neut % (Auto) 68.0 (45.5-73.1) % Lymph % (Auto) 19.2 (18.3-44.2) % [place] % (Auto) 8.9 H (2.6-8.5) % Eos % (Auto) 2.6 (0-4.4) % Baso % (Auto) 1.0 (0.2-1.2) % Lymph # (Auto) 2.05 (0.9-3.2) K/mm3 [place] # (Auto) 1.0 H (0.1-0.6) K/mm3 Eos # (Auto) 0.3 (0-0.3) K/mm3 Baso # (Auto) 0.1 (0.0-0.1) K/mm3 Abs Immat Gran (auto) 0.03 (0.00-0.031) K/mm3 Absolute Neuts (auto) 7.3 H (1.3-6.7) K/mm3 Absolute Nucleated RBC 0.000 (0.0-0.012) K/mm3 Nucleated RBC % 0.0 (0.0-0.2) % PT 14.0 (11.1-14.7) Seconds INR 1.0 APTT 31.5 (22.3-36.8) Seconds Sodium 138 (137-145) mmol/L Potassium 3.8 (3.4-5.0) mmol/L Chloride 103 (98-107) mmol/L Carbon Dioxide 23 (22-30) mmol/L Anion Gap 12 (4-12) mmol/L BUN 13 (9-20) mg/dL Creatinine 1.00 (0.7-1.3) mg/dL Estim Creat Clear Calc 89 ml/min Estimated GFR > 60 (59 - ) Glucose 106 (65-110) mg/dL Calcium 10.0 (8.4-10.2) mg/dL Total Bilirubin 1.1 (0.2-1.3) mg/dL AST 23 (17-59) U/L ALT 29 (6-50) U/L Alkaline Phosphatase 88 (38-126) U/L Troponin I < 0.012 < 0.012 (0.000-0.034) ng/mL Total Protein 8.0 (6.3-8.2) g/dL Albumin 4.8 (3.5-5.1) g/dL Lipase 67 (23-300) U/L <Azalia Mills MD - Last Filed: 09/12/24 06:47> Lab Results 09/12/24 09/12/24 Range/Units 04:16 07:25 WBC 10.7 H (4.5-10.0) K/mm3 RBC 5.00 (4.6-6.20) M/mm3 Hgb 14.9 (14.0-18.0) g/dL Hct 44.3 (42.0-52.0) % MCV 88.6 (80-100) fl MCH 29.8 (26-34) pg MCHC 33.6 (32-36) g/dl RDW 12.9 (11.5-14.5) % Plt Count 251 (150-375) k/mm3 MPV 10.1 (7.4-10.4) fl Immature Gran % (Auto) 0.3 (0-0.5) % Neut % (Auto) 68.0 (45.5-73.1) % Lymph % (Auto) 19.2 (18.3-44.2) % [place] % (Auto) 8.9 H (2.6-8.5) % Eos % (Auto) 2.6 (0-4.4) % Baso % (Auto) 1.0 (0.2-1.2) % Lymph # (Auto) 2.05 (0.9-3.2) K/mm3 [place] # (Auto) 1.0 H (0.1-0.6) K/mm3 Eos # (Auto) 0.3 (0-0.3) K/mm3 Baso # (Auto) 0.1 (0.0-0.1) K/mm3 Abs Immat Gran (auto) 0.03 (0.00-0.031) K/mm3 Absolute Neuts (auto) 7.3 H (1.3-6.7) K/mm3 Absolute Nucleated RBC 0.000 (0.0-0.012) K/mm3 Nucleated RBC % 0.0 (0.0-0.2) % PT 14.0 (11.1-14.7) Seconds INR 1.0 APTT 31.5 (22.3-36.8) Seconds Sodium 138 (137-145) mmol/L Potassium 3.8 (3.4-5.0) mmol/L Chloride 103 (98-107) mmol/L Carbon Dioxide 23 (22-30) mmol/L Anion Gap 12 (4-12) mmol/L BUN 13 (9-20) mg/dL Creatinine 1.00 (0.7-1.3) mg/dL Estim Creat Clear Calc 89 ml/min Estimated GFR > 60 (59 - ) Glucose 106 (65-110) mg/dL Calcium 10.0 (8.4-10.2) mg/dL Total Bilirubin 1.1 (0.2-1.3) mg/dL AST 23 (17-59) U/L ALT 29 (6-50) U/L Alkaline Phosphatase 88 (38-126) U/L Troponin I < 0.012 < 0.012 (0.000-0.034) ng/mL Total Protein 8.0 (6.3-8.2) g/dL Albumin 4.8 (3.5-5.1) g/dL Lipase 67 (23-300) U/L <Humberto Walton MD - Last Filed: 09/12/24 17:15> Discharge Plan Discharge Clinical Impression: Atypical chest pain <Azalia Mills MD - Last Filed: 09/12/24 06:47> Patient Disposition: Still a Patient <Azalia Mills MD - Last Filed: 09/12/24 06:47> Condition: Improved <Azalia Mills MD - Last Filed: 09/12/24 06:47> Additional Instructions: Have close follow-up with your primary care physician for additional outpatient cardiac testing. If you have any worsening symptoms then please call or return to the emergency department. <Azalia Mills MD - Last Filed: 09/12/24 06:47> Prescriptions: No Action cholecalciferol (vitamin D3) [Vitamin D3] 25 mcg (1,000 unit) tablet 1,000 unit PO DAILY latanoprost 0.005 % drops 1 drp EACH EYE HS fluticasone propionate [Flonase Allergy Relief] 50 mcg/actuation spray,suspension 1 spray intranasal BID PRN (Reason: allergies) Rx Instructions: administer into each nostril zinc 25 mg Tablet 25 mg PO DAILY Combivent Respimat 20-100 mcg/actuation mist 1 puff inhalation QID PRN (Reason: shortness of breath or wheezing) Qty: 4 2RF Rx Instructions: space evenly during waking hours timolol maleate 0.5 % drops 1 drp LEFT EYE BID cyanocobalamin (vitamin B-12) 1,000 mcg tablet 1,000 mcg PO DAILY fluticasone propion-salmeterol [Wixela Inhub] 100-50 mcg/dose blister with device See Rx Instructions .ROUTE .COMPLEX Qty: 60 11RF Dose Instruction: INHALE 1 PUFF EVERY 12 HOURS. RINSE AND SPIT Rx Instructions: INHALE 1 PUFF EVERY 12 HOURS. RINSE AND SPIT <Azalia Mills MD - Last Filed: 09/12/24 06:47> Follow-up/Referrals: Peter Granado MD [Primary Care Provider] - <Azalia Mills MD - Last Filed: 09/12/24 06:47>
[2024-09-12 07:17] VITALS: BP 139/93; PULSE 74; RESP 16; O2SAT 98
--- NOTE | 2024-09-12 07:19 | ECG_ITS ---
Test Date: 2024-09-12 07:30:36 Measurements Intervals [place] Rate: 68 P: 7 [place]: 176 QRS: -17 QRSD: 96 T: 9 QT: 418 QTc: 446 Interpretive Statements SINUS RHYTHM INFERIOR INFARCT, AGE INDETERMINATE ABNORMAL ECG Compared to ECG 09/12/2024 04:11:45 HEART RATE HAS INCREASED Electronically Signed On 09-12-2024 07:57:01 LICENSING DIRECTOR by Michael Viera D.O.
[2024-09-12 07:57] LABS: Troponin I < 0.012 ng/mL (0.000-0.034)
[2024-09-12 09:05] VITALS: BP 137/91; PULSE 72; RESP 16; O2SAT 99
== END 2024-09-12 09:07 | disposition home or self-care (01) ==
PROVIDERS: Emergency Provider Emergency Medicine; PCP Family Medicine
DX: R07.89 Other chest pain (principal); E78.2 Mixed hyperlipidemia; E66.3 Overweight; Z68.28 Body mass index [BMI] 28.0-28.9, adult; E53.8 Deficiency of other specified B group vitamins; H40.9 Unspecified glaucoma; H26.9 Unspecified cataract; K21.9 Gastro-esophageal reflux disease without esophagitis; R00.1 Bradycardia, unspecified; R94.31 Abnormal electrocardiogram [ECG] [EKG]
CPT/HCPCS: 36415; 71045; 80053; 83690; 84484; 85025; 85610; 85730; 93005; 96374; 99284

== ENCOUNTER → 2025-01-30 10:18 | Outpatient (CLI) | payer BC, SELFPAY ==
--- NOTE | ~2025-01-30 | XR_ITS ---
Clinical Indication: Acute bronchitis PA and lateral views of the chest: Comparison: 09/12/2024 Findings: The lungs are clear, without evidence of focal consolidation or pleural effusion. Cardiome diastinal silhouette is within normal limits. Bones and soft tissues are unremarkable. Impression: Normal chest. Reviewed, dictated and finalized at location . Impression: Normal chest.
== END ==
LOC: EXPTRAD 10:19
PROVIDERS: PCP Family Medicine; Visit Provider Family Medicine
DX: J20.9 Acute bronchitis, unspecified (principal)
CPT/HCPCS: 71046